=== PATIENT | female | born 1980 | race American Indian/Alaskan Native ===

== ENCOUNTER 2017-12-22 11:14 | Emergency (ER) | payer MEDICAID ==
[2017-12-22 12:02] VITALS: BP 104/66
== END 2017-12-22 16:14 | disposition left against medical advice (07) ==
LOC: ED 11:14
DX: M54.9 Dorsalgia, unspecified (principal); Z53.21 Procedure and treatment not carried out due to patient leaving prior to being seen by health care provider
CPT/HCPCS: 93005; 93010